=== PATIENT | male | born 2000 | race Caucasian/White ===

== ENCOUNTER 2023-04-12 15:05 | Emergency (ER) | payer SELFPAY ==
[2023-04-12] MEDS ORDERED: Ciprofloxacin 0.3% Ophth Soln 2.5 ML Bottle ONE (15:30)
== END 2023-04-12 15:35 | disposition home or self-care (01) ==
LOC: LB.ED 15:05
DX: H10.31 Unspecified acute conjunctivitis, right eye (principal)
CPT/HCPCS: 99282; 99283; A9270-GY